=== PATIENT | female | born 1990 ===

== ENCOUNTER 2017-09-08 15:12 | Inpatient (IN) ==
[2017-09-08] MEDS ORDERED: LACTATED RINGERS 1,000 ML IV SCH (16:30)
[2017-09-08 16:37] LABS: Basophils % 0.3 % (0.0-0.8); Eosinophils # 0.1 10*3/uL (0.0-0.87); Eosinophils % 0.6 % (0.00-10.9); Hematocrit 40.3 VOL% (35.7-47.0); Immature Granulocytes % 0.5 %; Immature Granulocytes Absolute 0.06 #; Lymphocytes # 2.1 10*3/uL (1.4-4.0); Lymphocytes % 18.1 % (21.3-54.2); Mean Corpuscular HGB Conc 34.7 GM/DL (32-36); Mean Corpuscular Hemoglobin 30 PG (27-34); Mean Corpuscular Volume 86.1 FL (87-102); Monocytes # 0.5 10*3/uL (0.11-0.8); Monocytes % 4.2 % (1.7-12.7); Neutrophils % 76.3 % (38.7-73.9); Platelet Count 235 T/CUMM (130-400); Red Blood Count 4.68 MC/CUMM (3.8-5.5); Red Cell Distribution Width 13.1 % (9.3-17.3); White Blood Count 11.8 T/CUMM (4-12)
[2017-09-08 16:47] LABS: Apearance,Urine CLEAR (Clear); Bilirubin,Urine Negative (Negative); Blood, Urine Negative (Negative); Glucose,Urine (UA) Negative (Negative); Ketones,Urine 5 mg/dL (Negative); Nitrite,Urine Negative (Negative); Protein,Urine 30 MG/DL; RBC,Urine <1 /HPF (0-4); Squamous Epithelial Cell,Urine Occasional /HPF (0-10); Urine Color Yellow (Yellow); Urine Urobilinogen < 2.0 EU/DL (0.2-1.0); WBC,Urine 4 /HPF (0-6)
[2017-09-08] MEDS ORDERED: hydrALAZINE 20 MG/1 ML VIAL IV ONE (16:56)
[2017-09-08] MEDS: BETAMETH SODIUM PHOS/ACETATE 30 MG/5 ML VIAL IM SCH (17:15)
[2017-09-08] MEDS: METHYLDOPA 250 MG TABLET PO SCH (17:15)
[2017-09-08 17:22] LABS: Alanine Aminotransferase 11 U/L (13-56); Albumin 2.3 G/DL (3.4-5.0); Alkaline Phosphatase 153 U/L (45-117); Aspartate Amino Transferase 8 U/L (0-37); Bilirubin,Total < 0.39 MG/DL (0.2-1.0); Blood Urea Nitrogen 11 MG/DL (7-18); Calcium 8.4 MG/DL (8.5-10.1); Glucose 71 MG/DL (74-106); Osmolality,Calculated 271.7 MOS/KG (273-304); Potassium 3.4 MMOL/L (3.5-5.1); Sodium 138 MMOL/L (136-145); Uric Acid 6.4 MG/DL (2.6-6.0)
[2017-09-08] MEDS ORDERED: ONDANSETRON 4 MG/2 ML VIAL IV PRN (18:26)
[2017-09-08] MEDS ORDERED: ACETAMINOPHEN 500 MG TABLET PO PRN (20:02)
[2017-09-08] MEDS: LACTATED RINGERS 1,000 ML IV SCH (20:15)
[2017-09-08 21:06] LABS: Barbiturates Screen,Urine Negative (Negative); Benzodiazepines Screen,Urine Negative (Negative); Cannabinoid Screen,Urine Negative (Negative); Opiate Screen,Urine Negative (Negative); Phencyclidine Screen,Urine Negative (Negative)
[2017-09-08] MEDS ORDERED: DEXTROSE 50% 25 GM/50 ML VIAL IV PRN (21:20)
[2017-09-08] MEDS ORDERED: GLUCAGON 1 MG VIAL IM PRN (21:20)
[2017-09-08] MEDS: INSULIN REGULAR 100 UNIT/ML SUBCUT SCH (21:26)
[2017-09-09] MEDS: METHYLDOPA 250 MG TABLET PO SCH ×3 (01:06→17:54)
[2017-09-09] MEDS: LACTATED RINGERS 1,000 ML IV SCH ×2 (03:24→17:55)
[2017-09-09] MEDS: INSULIN REGULAR 100 UNIT/ML SUBCUT SCH ×2 (03:59→06:51)
[2017-09-09 19:00] LABS: Collection Time,Urine 24 HOURS; Total Protein 24 Hr Ur Result 900 MG/24HR (0-149.1); Total Volume,Urine 1125 ML (400-2000)
[2017-09-09 19:09] LABS: Creatinine 24 Hr Urine Result 1.11 G/24HR (0.60-1.80)
[2017-09-09] MEDS: BETAMETH SODIUM PHOS/ACETATE 30 MG/5 ML VIAL IM SCH (19:29)
[2017-09-09] MEDS: LABETALOL 100 MG TABLET PO SCH (23:01)
[2017-09-10] MEDS: METHYLDOPA 250 MG TABLET PO SCH ×2 (01:00→09:36)
[2017-09-10] MEDS: LABETALOL 100 MG TABLET PO SCH (11:22)
[2017-09-10] MEDS ORDERED: MAGNESIUM SULF DRIP 40 GM/1,000 ML ML IV SCH (15:00)
[2017-09-10] MEDS ORDERED: MAGNESIUM SULF RIDER 100 ML IV ONE (15:02)
[2017-09-10] MEDS: LACTATED RINGERS 1,000 ML IV SCH (15:25)
[2017-09-10 17:43] VITALS: BP 159/87
== END 2017-09-10 16:25 | disposition hospice, home (50) | DRG 781 ==
LOC: N.LDOUT 15:12 → N.LD 15:15
PROVIDERS: ADMIT Obstetrics & Gynecology; ATTEND Obstetrics & Gynecology